=== PATIENT | female | born 2000 | race Caucasian/White ===

== ENCOUNTER → 2018-08-18 15:05 | Outpatient (CLI) | payer OTHER, SELFPAY ==
--- NOTE | 2018-08-18 | DI.US.S_ITS ---
PROCEDURE: US EXTREMITY NON-VASCULAR COMPARISON: None. INDICATIONS: INGUINAL MASS FINDINGS: Limited sonographic images of the right groin demonstrate a 2.3 x 0.5 x 0.9 cm lymph node. IMPRESSION: Enlarged right groin lymph node. While this could be reactive in nature, interval followup is recommended to document resolution and exclude presence of other underlying etiologies including neoplastic disease. Dictated by: Tanisha Hopkins M.D. on 08/19/2018 at 17:43 Approved by: Tanisha Hopkins M.D. on 08/19/2018 at 17:44
[2018-08-18 16:37] LABS: HIV 1 and 2 Antibody NEGATIVE (NEGATIVE); Hep C Virus Ab w/Reflex Quant NEGATIVE s/c (NEGATIVE)
== END ==
PROVIDERS: Family Provider Pediatrics; PCP Family Medicine; Visit Provider Nurse Practitioner
DX: Z11.3 Encounter for screening for infections with a predominantly sexual mode of transmission (principal); R59.0 Localized enlarged lymph nodes
CPT/HCPCS: 36415; 76882; 86703; 86803

== ENCOUNTER → 2018-10-10 20:46 | Outpatient (CLI) | payer OTHER, SELFPAY | PROVIDERS: Family Provider Pediatrics; PCP Family Medicine; Visit Provider Physician Assistant | DX: J02.9 Acute pharyngitis, unspecified (principal) | CPT/HCPCS: 87070 ==

== ENCOUNTER → 2019-06-10 13:18 | Outpatient (CLI) | payer OTHER, SELFPAY | PROVIDERS: Physician Assistant; PCP Family Medicine; Visit Provider Family Medicine | DX: R19.7 Diarrhea, unspecified (principal) | CPT/HCPCS: 87045; 87177; 87899 ==

== ENCOUNTER → 2019-07-03 08:55 | Outpatient (CLI) | payer OTHER, SELFPAY | PROVIDERS: PCP Family Medicine; Visit Provider Nurse Practitioner | DX: R07.0 Pain in throat (principal) | CPT/HCPCS: 87070; 87077; 87147 ==

== ENCOUNTER → 2019-09-03 16:16 | Outpatient (CLI) | payer OTHER, SELFPAY ==
--- NOTE | 2019-09-03 | DI.US.S_ITS ---
PROCEDURE: US PELVIC COMPLETE INDICATIONS: PELVIC PAIN TECHNIQUE: Real-time scanning was performed of the pelvic organs, with image documentation. Additional endovaginal scanning was necessary due to incomplete visualization of the adnexal and endometrial structures by transabdominal scanning. COMPARISON: None. FINDINGS: Transabdominal scanning: Limited scanning through the kidneys shows no hydronephrosis. No pathologic free abdominal or pelvic fluid. Endovaginal scanning: Uterus: Uterus is normal in size at 3.9 x 5.4 x 7.7 cm, anteverted. The endometrium measures 2.3 mm in combined thickness. Ovaries: The right ovary measures 3.2 x 1.9 x 1.9 cm and appears normal. The left ovary measures 2.9 x 1.5 x 2.3 cm, also normal in appearance. IMPRESSION: Normal pelvic ultrasound, source of current pain is not found. Dictated by: Isaac Nicholson M.D. on 09/04/2019 at 9:09 Approved by: Isaac Nicholson M.D. on 09/04/2019 at 9:17
== END ==
PROVIDERS: PCP Family Medicine; Referring Provider Nurse Practitioner; Visit Provider Nurse Practitioner
DX: R10.2 Pelvic and perineal pain (principal)
CPT/HCPCS: 76830; 76856

== ENCOUNTER → 2020-02-24 15:22 | Outpatient (CLI) | payer OTHER, SELFPAY | PROVIDERS: PCP Family Medicine; Visit Provider Physician Assistant | DX: J02.9 Acute pharyngitis, unspecified (principal) | CPT/HCPCS: 87070 ==

== ENCOUNTER → 2021-02-23 08:20 | Outpatient (CLI) | payer OTHER, SELFPAY ==
[2021-02-23 10:01] LABS: Urine N gonorrhoeae NOT DETECTED
[2021-02-23 10:02] LABS: Urine Chlamydia NOT DETECTED
[2021-02-23 10:20] LABS: Hepatitis B Surface Antigen NEGATIVE s/c (NEGATIVE)
[2021-02-23 10:37] LABS: HIV 1 & 2 Ab/Ag 4th Gen Combo NEGATIVE (NEGATIVE); Hep C Virus Ab w/Reflex Quant NEGATIVE s/c (NEGATIVE)
[2021-02-24 05:44] LABS: HSV 2 IGG AB < 0.91 index (0.00-0.90); HSV1IGG < 0.91 index (0.00-0.90)
[2021-02-24 09:31] LABS: RPR Screen Non Reactive (Non Reactive)
== END ==
PROVIDERS: PCP Family Medicine; Referring Provider Nurse Practitioner; Visit Provider Nurse Practitioner
DX: Z11.3 Encounter for screening for infections with a predominantly sexual mode of transmission (principal)
CPT/HCPCS: 36415; 86592; 86695; 86696; 86803; 87340; 87389; 87491; 87591

== ENCOUNTER → 2021-05-29 07:36 | Outpatient (CLI) | payer OTHER, SELFPAY | PROVIDERS: PCP Family Medicine; Visit Provider Nurse Practitioner Family | DX: N89.8 Other specified noninflammatory disorders of vagina (principal) | CPT/HCPCS: 87086; 87210 ==

== ENCOUNTER → 2021-06-29 15:15 | Outpatient (CLI) | payer OTHER, SELFPAY ==
[2021-06-29 15:53] LABS: Add Manual Diff / Slide Review NO; Basophils Absolute Auto 0 /uL (0-100); Basophils Percent Auto 0.6 % (0-2); Eosinophils Absolute Auto 600 /uL (0-450); Eosinophils Percent Auto 7.4 % (2-4); Hematocrit 39.5 % (36-46); Hemoglobin 13.2 g/dL (12.0-16.0); Lymphocytes Absolute Auto 1400 /uL (1100-4500); Lymphocytes Percent Auto 18.3 % (25-40); Mean Corpuscular HGB Conc 33.4 % (30-36); Mean Corpuscular Volume 89.9 fL (80-100); Monocytes Absolute Auto 500 /uL (0-900); Monocytes Percent Auto 6.4 % (3-14); Neutrophils Absolute Auto 5000 /uL (1500-7000); Neutrophils Percent Auto 67.3 % (50-75); Platelet Count 214 X10^3/uL (150-400); Red Cell Distribution Width 12.9 % (11.6-14.8); White Blood Cell Count 7.5 X10^3/uL (4.5-11.0)
[2021-06-29 16:24] LABS: Alanine Aminotransferase 16 IU/L (<35); Albumin 4.5 g/dL (3.5-5.0); Albumin Globulin Ratio 1.4 (1.0-2.8); Alkaline Phosphatase 36 U/L (38-126); Aspartate Aminotransferase 23 IU/L (14-36); Bilirubin Total 0.5 mg/dL (0.2-1.3); Blood Urea Nitrogen 12 mg/dL (7-17); C-Reactive Protein Quant < 0.5 mg/dL (<1.0); Carbon Dioxide 25 mmol/L (22-32); Chloride 106 mmol/L (98-107); Estimated Glomerular Filt Rate > 60.0 mL/min (>60); Globulin 3.3 g/dL (1.7-4.1); Glucose 100 mg/dL (70-100); HEMOLYSIS < 15 (0-50); Potassium 3.7 mmol/L (3.4-5.1); Sodium 138 mmol/L (137-145); Total Protein 7.8 g/dL (6.3-8.2)
[2021-06-29 16:26] LABS: Rheumatoid Factor < 8.6 IU/mL (<12.0)
[2021-06-29 19:04] LABS: Erythrocyte Sedimentation Rate 5 MM/HR (0-20)
[2021-07-01 21:11] LABS: ANA Screen, IFA Positive (.)
== END ==
PROVIDERS: PCP Family Medicine; Referring Provider Family Medicine; Visit Provider Family Medicine
DX: R21 Rash and other nonspecific skin eruption (principal); M25.50 Pain in unspecified joint
CPT/HCPCS: 36415; 80053; 85025; 85651; 86038; 86140; 86430

== ENCOUNTER → 2021-08-21 15:12 | Outpatient (CLI) | payer OTHER, SELFPAY ==
--- NOTE | 2021-09-04 16:45 | PM.CARDMON.1 ---
Incident Response Manager Report Referral & Results Date Patient Seen: 08/21/21 Requesting provider: Agnes Linn Indication: Palpitations Duration of monitoring (days): 7 Diary information: There were 6 patient triggered events and 0 patient diary entries Patient triggered events were associated variably with (within 45 seconds) sinus rhythm, simple PACs, simple PVCs, and SVT Data: Minimum heart rate identified was 46 beats per minute at 02:45 on 08/26/2021 Maximum sinus heart rate was 160 beats per minute at 19:36 on 08/26/2021 Maximum overall heart rate was 164 beats per minute at 00:22 on 08/23/2021 during a run of SVT There was 1 run of SVT that lasted 13 beats at a rate of 164 beats per minute Less than 1% of identified beats were ventricular or supraventricular ectopic in origin, which would classify them as rare. 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
== END ==
PROVIDERS: PCP Family Medicine; Referring Provider Family Medicine; Visit Provider Family Medicine
DX: R00.2 Palpitations (principal)
CPT/HCPCS: 93242; 93244

== ENCOUNTER → 2022-01-22 10:29 | Outpatient (CLI) | payer OTHER, SELFPAY | PROVIDERS: PCP Family Medicine; Referring Provider Family Medicine; Visit Provider Family Medicine | DX: R19.7 Diarrhea, unspecified (principal) | CPT/HCPCS: 87177 ==

== ENCOUNTER → 2022-10-26 14:50 | Outpatient (CLI) | payer OTHER, SELFPAY ==
[2022-10-26 18:49] LABS: Add Manual Diff / Slide Review NO; Basophils Absolute Auto 0 /uL (0-100); Basophils Percent Auto 0.5 % (0-2); Eosinophils Absolute Auto 300 /uL (0-450); Eosinophils Percent Auto 5.8 % (2-4); Hematocrit 35.6 % (36-46); Lymphocytes Absolute Auto 1400 /uL (1100-4500); Lymphocytes Percent Auto 26.6 % (25-40); Mean Corpuscular HGB Conc 33.6 % (30-36); Mean Corpuscular Hemoglobin 29.7 PG (26-34); Mean Corpuscular Volume 88.4 fL (80-100); Monocytes Absolute Auto 400 /uL (0-900); Monocytes Percent Auto 8.1 % (3-14); Neutrophils Absolute Auto 3100 /uL (1500-7000); Platelet Count 200 X10^3/uL (150-400); Red Blood Cell Count 4.03 X10^6/uL (4.0-5.2); Red Cell Distribution Width 13.7 % (11.6-14.8); White Blood Cell Count 5.2 X10^3/uL (4.5-11.0)
[2022-10-26 19:23] LABS: Alanine Aminotransferase 18 IU/L (<35); Albumin 4.3 g/dL (3.5-5.0); Albumin Globulin Ratio 1.4 (1.0-2.8); Alkaline Phosphatase 43 U/L (38-126); Aspartate Aminotransferase 20 IU/L (14-36); BUN Creatinine Ratio 18.6 (6-22); Bilirubin Total 0.6 mg/dL (0.2-1.3); Blood Urea Nitrogen 11 mg/dL (7-17); Calcium 8.8 mg/dL (8.4-10.2); Carbon Dioxide 22 mmol/L (22-32); Chloride 104 mmol/L (98-107); Estimated Glomerular Filt Rate > 60 mL/min (>60); Globulin 3.1 g/dL (1.7-4.1); Glucose 78 mg/dL (70-100); HEMOLYSIS < 15 (0-50); Potassium 3.4 mmol/L (3.4-5.1); Sodium 137 mmol/L (137-145); Total Protein 7.4 g/dL (6.3-8.2)
== END ==
PROVIDERS: PCP Family Medicine; Referring Provider Family Medicine; Visit Provider Family Medicine
DX: K52.9 Noninfective gastroenteritis and colitis, unspecified (principal); R76.8 Other specified abnormal immunological findings in serum
CPT/HCPCS: 36415; 80053; 84443; 85025

== ENCOUNTER → 2023-07-18 16:10 | Outpatient (CLI) | payer OTHER, SELFPAY | PROVIDERS: PCP Family Medicine; Visit Provider Nurse Practitioner Family | DX: J02.9 Acute pharyngitis, unspecified (principal) | CPT/HCPCS: 87070; 87077; 87147 ==

== ENCOUNTER → 2024-01-28 18:35 | Outpatient (CLI) | payer OTHER, SELFPAY | PROVIDERS: PCP Family Medicine; Visit Provider Nurse Practitioner Family | DX: J02.9 Acute pharyngitis, unspecified (principal) | CPT/HCPCS: 87070 ==

== ENCOUNTER → 2024-07-14 08:59 | Outpatient (CLI) | payer OTHER, SELFPAY | PROVIDERS: PCP Family Medicine; Visit Provider Physician Assistant Surgical | DX: R35.0 Frequency of micturition (principal) | CPT/HCPCS: 87077; 87086; 87186 ==

== ENCOUNTER → 2025-04-14 17:18 | Outpatient (CLI) | payer OTHER, SELFPAY ==
[2025-04-14 17:40] LABS: Hematocrit 37.8 % (36-46); Hemoglobin 12.7 g/dL (12.0-16.0); Mean Corpuscular HGB Conc 33.6 % (30-36); Mean Corpuscular Hemoglobin 30.0 PG (26-34); Mean Corpuscular Volume 89.3 fL (80-100); Platelet Count 187 X10^3/uL (150-400)
[2025-04-14 17:52] LABS: HEMOLYSIS < 15 (0-50); Iron 63 ug/dL (37-170)
[2025-04-14 17:57] LABS: Hemoglobin A1C% w Est Avg Glu 5.2 % (4.0-6.0)
[2025-04-14 18:02] LABS: Percent Iron Saturation 20 % (15-50); Total Iron Binding Capacity 314 ug/dL (265-497); Transferrin 263 mg/dL (206-381)
[2025-04-14 18:03] LABS: Blood Urea Nitrogen 11 mg/dL (7-17); Calcium 9.6 mg/dL (8.4-10.2); Carbon Dioxide 26 mmol/L (22-32); Chloride 104 mmol/L (98-107); Estimated Glomerular Filt Rate > 60 mL/min (>60); Glucose 91 mg/dL (70-99); HEMOLYSIS < 15 (0-50); Potassium 4.3 mmol/L (3.4-5.1); Sodium 136 mmol/L (137-145)
[2025-04-14 18:38] LABS: Ferritin 26 ng/mL (6-137)
[2025-04-14 18:50] LABS: Vitamin D 25 Hydroxy (D3) 43.6 ng/mL (30.0-100.0)
== END ==
PROVIDERS: PCP Family Medicine; Referring Provider Family Medicine; Visit Provider Family Medicine
DX: K29.50 Unspecified chronic gastritis without bleeding (principal); Z13.9 Encounter for screening, unspecified; E87.8 Other disorders of electrolyte and fluid balance, not elsewhere classified; Z13.1 Encounter for screening for diabetes mellitus; Z13.21 Encounter for screening for nutritional disorder
CPT/HCPCS: 80048; 82306; 82728; 83036; 83540; 83550; 85027

== ENCOUNTER → 2025-05-28 17:08 | Outpatient (CLI) | payer OTHER, SELFPAY ==
[2025-05-28 18:22] LABS: Follicle Stimulating Hormone 6.03 mIU/mL
[2025-05-28 18:35] LABS: TSH w/ Reflex to FT4 1.66 uIU/mL (0.47-4.68)
[2025-05-28 18:37] LABS: Estradiol, Total 38.0 pg/mL
[2025-05-28 20:27] LABS: Urine N gonorrhoeae NOT DETECTED
[2025-05-28 20:45] LABS: Urine Chlamydia NOT DETECTED
== END ==
PROVIDERS: PCP Family Medicine; Referring Provider Family Medicine; Visit Provider Family Medicine
DX: Z11.3 Encounter for screening for infections with a predominantly sexual mode of transmission (principal); N94.6 Dysmenorrhea, unspecified; R53.82 Chronic fatigue, unspecified; K52.9 Noninfective gastroenteritis and colitis, unspecified; F41.9 Anxiety disorder, unspecified
CPT/HCPCS: 36415; 82670; 83001; 83002; 84443; 86376; 86800; 87491; 87591